=== PATIENT | female | born 1975 | race Caucasian/White ===

== ENCOUNTER 2023-05-27 19:34 | Emergency (ER) | payer OTHER ==
[2023-05-27 19:45] VITALS: BP 161/71; PULSE 92; RESP 18; TEMP 98.6; BMI 28.2
[2023-05-27] MEDS ORDERED: AMOX TR/POT CLAV 875MG/125MG TABLETS (FP) PO ONE (21:28)
[2023-05-27] MEDS ORDERED: AMOX TR/POT CLAV 875MG/125MG TABLETS (FP) ONE (21:33)
== END 2023-05-27 22:35 | disposition home or self-care (01) ==
LOC: JERFT 19:34
DX: R22.0 Localized swelling, mass and lump, head (principal); K04.7 Periapical abscess without sinus
CPT/HCPCS: 99283-25